=== PATIENT | male | born 1965 | race Caucasian/White ===

== ENCOUNTER 2022-10-20 09:33 | Outpatient (CLI) | payer BC ==
[2022-10-20] MEDS ORDERED: Magnevist 469MG/ML 20 ML VIAL ONE (10:51)
== END 2022-10-20 09:34 | disposition home or self-care (01) ==
LOC: MRI 09:33
PROVIDERS: ATTEND Psychiatry & Neurology Neurology
DX: G40.209 Localization-related (focal) (partial) symptomatic epilepsy and epileptic syndromes with complex partial seizures, not intractable, without status epilepticus (principal)
CPT/HCPCS: 70553; 95816; 95957; A9579

== ENCOUNTER 2024-08-02 08:37 | Outpatient (CLI) | payer BC, OTHER ==
[2024-08-02 11:23] LABS: #Basophils 0.08 10x3/uL (0.0-0.2); %Basophils 1.4 % (0.0-1.0); %Eosinophils 4.4 % (0.0-10.0); %Lymphocytes 21.7 % (21.0-51.0); %Monocytes 12.8 % (0.0-10.0); %Neutrophils 59.4 % (42.0-75.0); Hematocrit 43.2 % (42.0-52.0); Mean Corpuscular HGB CONC 34.7 g/dL (32.0-36.0); Mean Corpuscular Hemoglobin 31.9 pg (27.0-31.0); Mean Corpuscular Volume 91.9 fL (78.0-98.0); Mean Platelet Volume 10.6 fL (7.4-10.4); Platelet Count 309 10x3/uL (130-400); RBC Distribution Width 12.9 % (11.5-14.5)
[2024-08-02 11:42] LABS: Prothrombin Time 12.7 sec (12.0-14.7)
[2024-08-02 13:09] LABS: Anion Gap 13 mmol/L (10-20); BUN (Urea Nitrogen) 16 mg/dL (8.4-25.7); Calc. Creatinine Clearance 0 mL/min (70-130); Calcium 8.8 mg/dL (7.8-10.44); Carbon Dioxide 22 mmol/L (22-29); Chloride 108 mmol/L (98-107); Estimated GFR 99; Glucose 103 mg/dL (70-105); Potassium 3.9 mmol/L (3.5-5.1); Sodium 139 mmol/L (136-145)
== END 2024-08-02 08:38 | disposition home or self-care (01) ==
LOC: LABBT 08:37
PROVIDERS: ATTEND Orthopaedic Surgery
DX: Z01.818 Encounter for other preprocedural examination (principal); M17.0 Bilateral primary osteoarthritis of knee
CPT/HCPCS: 80048; 85025; 85610; 87081; 93005; 93010

== ENCOUNTER 2024-08-17 06:30 | Observation (INO) | payer BC, OTHER ==
[2024-08-02 08:53] VITALS: BMI 30.9
[2024-08-17] MEDS ORDERED: CEFAZOLIN 2 GM VIAL ONE (07:12)
[2024-08-17] MEDS ORDERED: Tranexamic Acid 1,000 MG/10 ML VIAL ONE (07:12)
[2024-08-17] MEDS ORDERED: Vancomycin (BATCH) 1.5 GM/300 ML BAG ONE (07:12)
[2024-08-17] MEDS ORDERED: Sodium Chloride 0.9% 100 ML ONE ×2 (07:13→07:26)
[2024-08-17] MEDS ORDERED: Lidocaine 1% MPF 2 ML VIAL ONE (07:20)
[2024-08-17] MEDS ORDERED: Midazolam HCl 2 mg/2 ml Vial ONE (07:37)
[2024-08-17] MEDS ORDERED: Ropivacaine 0.5% HCl/PF (150 MG/30 ML VIAL) ONE (07:37)
[2024-08-17] MEDS ORDERED: fentaNYL 50 mcg/mL 1 mL Vial ONE ×5 (07:37→11:43)
[2024-08-17] MEDS ORDERED: Bupivacaine 0.25% HCL 30 ML VIAL ONE (07:46)
[2024-08-17] MEDS ORDERED: EPINEPHrine 1 MG/ML VIAL ONE (07:46)
[2024-08-17] MEDS ORDERED: traMADol HCl 50 MG TAB PO PRN (08:00)
[2024-08-17] MEDS ORDERED: Zolpidem Tartrate 5 MG TAB PO PRN (08:00)
[2024-08-17] MEDS ORDERED: Ropivacaine 0.2% 550 ML 550 ML NERVE BLCK SCH (08:00)
[2024-08-17] MEDS ORDERED: Promethazine HCl 25 MG/ML VIAL IM PRN (08:00)
[2024-08-17] MEDS ORDERED: Ondansetron PF 4 MG/2 ML Vial IVP PRN (08:00)
[2024-08-17] MEDS ORDERED: PROPOFOL 20 ML ONE (08:32)
[2024-08-17] MEDS ORDERED: Lidocaine 1% PF 5 ML VIAL ONE (09:00)
[2024-08-17] MEDS ORDERED: PHENYLEPHRINE-NS 100 MCG/ML 10 ML SYRINGE ONE (09:16)
[2024-08-17] MEDS ORDERED: ePHEDrine Sulfate 50 MG/10 ML VIAL ONE (10:31)
[2024-08-17] MEDS ORDERED: Ondansetron PF 4 MG/2 ML Vial ONE (10:34)
[2024-08-17] MEDS ORDERED: Ketorolac Tromethamine 30 MG (1 mL) VIAL ONE (11:14)
[2024-08-17] MEDS ORDERED: Morphine 4 MG/ML VIAL ONE (11:20)
[2024-08-17] MEDS ORDERED: diphenhydrAMINE 25 MG CAP PO PRN (11:37)
[2024-08-17] MEDS ORDERED: Morphine 2 MG/ML VIAL ONE (12:07)
[2024-08-17] MEDS ORDERED: HYDROmorphone 0.5 MG/0.5 ML SYRINGE ONE ×2 (12:28→12:47)
[2024-08-17] MEDS ORDERED: HYDROcodone/Acetaminophen 10/325 mg Tablet ONE (13:34)
[2024-08-17] MEDS: Sodium Chloride 0.9% 1,000 ML IV SCH (16:52)
[2024-08-17] MEDS: Multivitamin W/ Minerals 1 TAB PO SCH (16:54)
[2024-08-17] MEDS: Ferrous Gluconate 324 MG TAB PO SCH ×2 (16:54→21:37)
[2024-08-17] MEDS: Ketorolac Tromethamine 30 MG (1 mL) VIAL IVP SCH (16:54)
[2024-08-17] MEDS: Aspirin 81 mg Enteric Coated Tablet PO SCH ×2 (16:54→21:37)
[2024-08-17] MEDS: Senokot S 8.6-50 MG TAB PO SCH ×2 (16:55→21:37)
[2024-08-17] MEDS: CEFAZOLIN 2 GM in Sodium Chloride 0.9% 100 ML IVPB SCH (17:28)
[2024-08-17] MEDS: HYDROcodone/Acetaminophen 10/325 mg Tablet PO PRN ×2 (17:39→21:38)
[2024-08-18] MEDS: fentaNYL 50 mcg/mL 1 mL Vial SLOW IVP PRN (02:54)
[2024-08-18] MEDS: traMADol HCl 50 MG TAB PO PRN (04:01)
[2024-08-18 04:34] LABS: Hemoglobin 12.4 g/dL (14.0-18.0); Mean Corpuscular HGB CONC 34.4 g/dL (32.0-36.0); Mean Corpuscular Hemoglobin 32.1 pg (27.0-31.0); Mean Corpuscular Volume 93.3 fL (78.0-98.0); Mean Platelet Volume 10.4 fL (7.4-10.4); Platelet Count 306 10x3/uL (130-400); RBC Distribution Width 13.2 % (11.5-14.5); Red Blood Cell (RBC) Count 3.86 mill/uL (4.70-6.10)
[2024-08-18] MEDS: Levothyroxine Sodium 100 MCG TAB PO SCH (05:28)
[2024-08-18 09:14] VITALS: BP 116/68; TEMP 98.3
[2024-08-18] MEDS: Multivitamin W/ Minerals 1 TAB PO SCH (09:17)
[2024-08-18] MEDS: Acetaminophen 325 MG TAB PO PRN (09:19)
== END 2024-08-18 11:35 | disposition home or self-care (01) ==
LOC: SDC 06:30 → SURG A 14:31 → SDC 16:48
PROVIDERS: ADMIT Orthopaedic Surgery; ATTEND Orthopaedic Surgery
PROC: 0SRD0JZ Replacement of Left Knee Joint with Synthetic Substitute, Open Approach (ICD-10-PCS; principal; 2024-08-17)
PROC: 3E0T3BZ Introduction of Anesthetic Agent into Peripheral Nerves and Plexi, Percutaneous Approach (ICD-10-PCS; 2024-08-17)
DX: M17.0 Bilateral primary osteoarthritis of knee (principal); J40 Bronchitis, not specified as acute or chronic; E03.9 Hypothyroidism, unspecified; K21.9 Gastro-esophageal reflux disease without esophagitis; K27.4 Chronic or unspecified peptic ulcer, site unspecified, with hemorrhage; G40.909 Epilepsy, unspecified, not intractable, without status epilepticus; Z79.890 Hormone replacement therapy
CPT/HCPCS: 0055T; 27447; 64448; 36415; 85027; A4306; C1713; C1776; C1889; J0171; J0665; J1171; J1885; J2250; J2272; J2405; J2704; J2795; J3010; J3370